=== PATIENT | female | born 1985 | race Hispanic/Latino ===

== ENCOUNTER 2019-01-15 20:07 | Inpatient (IN) | payer BC ==
[~2019-01-15] VITALS: Ht 149.9 cm; Wt 92.1 kg
[2019-01-15 20:41] LABS: APPEARANCE,URINE Clear (CLEAR); BILIRUBIN,URINE Negative (NEGATIVE); COLOR,URINE Yellow (YELLOW); GLUCOSE, URINE (UA) Negative (NEGATIVE); KETONES,URINE Negative (NEGATIVE); LEUKOCYTE ESTERASE ,URINE Negative (NEGATIVE); NITRATE,URINE Negative (NEGATIVE); OCCULT BLOOD,URINE Negative (NEGATIVE); PROTEIN,URINE Negative (NEGATIVE); UROBILINOGEN,URINE 0.2 mg/dL (0.2-1.0)
[2019-01-15 20:45] LABS: HCG,QUAL RESULT NEGATIVE (NEGATIVE)
[2019-01-15] MEDS ORDERED: ONDANSETRON HCL 4 MG/2 ML VIAL ONE (20:47)
[2019-01-15] MEDS ORDERED: MORPHINE SULFATE 4 MG/1ML SYG ONE (20:47)
[2019-01-15] MEDS ORDERED: ACETAMINOPHEN EXTRA STRENGTH 500 MG TABLET ONE (20:47)
[2019-01-15] MEDS ORDERED: SODIUM CHLORIDE 0.9% 1000ML 1,000 ML IV ONE ×2 (20:48→23:22)
[2019-01-15 20:59] LABS: BASOPHILS % (AUTO) 0.3 % (0.0-5.0); EOSINOPHILS % (AUTO) 0.3 % (0.0-8.0); HEMATOCRIT 29.2 % (36-48); LYMPHOCYTES % (AUTO) 13.6 % (21.0-51.0); MEAN CORPUSCULAR HEMOGLOBIN 21.3 pg (27.0-33.0); MEAN CORPUSCULAR HGB CONC 31.5 g/dL (32.0-36.0); MEAN CORPUSCULAR VOLUME 67.5 fL (79-99); MONOCYTES % (AUTO) 6.5 % (3.0-13.0); NEUTROPHILS % (AUTO) 79.3 % (40.0-77.0); PLATELET COUNT (AUTO) 422 K/uL (130-400); RED BLOOD CELL COUNT(AUTO) 4.32 MIL/uL (4.00-5.50); RED CELL DISTRIBUTION WIDTH 18.1 % (11.0-15.5); WHITE BLOOD COUNT (AUTO) 13.1 K/uL (4.8-10.8)
[2019-01-15 21:15] LABS: CREATININE 0.8 mg/dL (0.5-1.5); POTASSIUM 3.1 mmol/L (3.5-5.1)
[2019-01-15 21:19] LABS: ALBUMIN 3.4 g/dL (3.5-5.0); BILIRUBIN,TOTAL 0.3 mg/dL (0.2-1.0); TOTAL PROTEIN, SERUM 7.5 g/dL (6.0-8.3)
[2019-01-15] MEDS ORDERED: IOHEXOL-350 75 ML VIAL IV ONE (21:26)
[2019-01-15] MEDS ORDERED: POTASSIUM BICARB/CIT AC 25 MEQ TABLET.EFF ONE (21:26)
[2019-01-15] MEDS ORDERED: LEVOFLOXACIN 750 MG/D5W 150 ML 150 ML ONE (22:28)
[2019-01-15] MEDS ORDERED: METRONIDAZOLE 500MG/100ML BAG 100 ML ONE (22:28)
[2019-01-16] VITALS (7 sets, daily range): BP systolic 112–145; BP diastolic 60–81
[2019-01-16] MEDS ORDERED: SODIUM CHLORIDE 0.9% 1000ML 1,000 ML IV ONE (00:10)
--- NOTE | 2019-01-16 01:10 | NUR ---
ADMISSION PATIENT RECEIVED FROM ER, AWAKE AND ALERT. VOICES ALL NEEDS. RESP EVEN AND UNLABORED. NO SOB NOTED. VITALS STABLE. AFEBRILE. NO FURTHER ORDERS AT THIS TIME. HOSPITALIST PAGED. RETURN CALL PENDING. PATIENT ORIENTATED TO ROOM AND HOSPITAL. NO QUESTIONS OR CONCERNS VOICED AT THIS TIME. HEAD TO TOE ASSESSMENT DONE. NO SKIN BREAKDOWN NOTED. CALL LIGHT WITHIN REACH. WILL CONTINUE TO BE OBSERVED. Addendum: 01/17/19 at 0838 by EULALIO ELLER RN RN Amended: Links added.
[2019-01-16] MEDS ORDERED: MINO50CA6 PO (01:26)
[2019-01-16] MEDS: SODIUM CHLORIDE 0.9% 1000ML 1,000 ML IV SCH ×2 (04:05→14:54)
[2019-01-16] MEDS ORDERED: MORPHINE SULFATE 4 MG/1ML SYG IV PRN (04:15)
[2019-01-16] MEDS ORDERED: LEVOFLOXACIN 500 MG/D5W 100 ML 100 ML IV SCH ×2 (04:15→22:00)
[2019-01-16] MEDS ORDERED: ACETAMINOPHEN 325 MG TAB PO PRN ×2 (04:15)
[2019-01-16] MEDS ORDERED: MORPHINE SULFATE 2 MG/ML 1ML SYG IV PRN (04:15)
[2019-01-16] MEDS ORDERED: ONDANSETRON HCL 4 MG/2 ML VIAL IV PRN (04:15)
[2019-01-16] MEDS ORDERED: MORPHINE SULFATE 4 MG/1ML SYG ONE (04:42)
[2019-01-16 06:04] LABS: BASOPHILS % (AUTO) 0.3 % (0.0-5.0); EOSINOPHILS % (AUTO) 0.5 % (0.0-8.0); HEMATOCRIT 24.7 % (36-48); LYMPHOCYTES % (AUTO) 20.1 % (21.0-51.0); MEAN CORPUSCULAR HEMOGLOBIN 21.8 pg (27.0-33.0); MEAN CORPUSCULAR HGB CONC 32.4 g/dL (32.0-36.0); MEAN CORPUSCULAR VOLUME 67.3 fL (79-99); NEUTROPHILS % (AUTO) 72.1 % (40.0-77.0); PLATELET COUNT (AUTO) 370 K/uL (130-400); RED BLOOD CELL COUNT(AUTO) 3.67 MIL/uL (4.00-5.50); RED CELL DISTRIBUTION WIDTH 18.7 % (11.0-15.5); WHITE BLOOD COUNT (AUTO) 8.6 K/uL (4.8-10.8)
[2019-01-16 06:17] LABS: ALBUMIN 2.9 g/dL (3.5-5.0); BILIRUBIN,TOTAL 0.5 mg/dL (0.2-1.0); CREATININE 0.6 mg/dL (0.5-1.5); POTASSIUM 3.5 mmol/L (3.5-5.1); TOTAL PROTEIN, SERUM 6.4 g/dL (6.0-8.3)
[2019-01-16] MEDS: METRONIDAZOLE 500MG/100ML BAG 100 ML IV SCH ×3 (06:31→20:52)
[2019-01-16] MEDS ORDERED: HYDRALAZINE HCL 20 MG/ML VIAL IV PRN (07:15)
[2019-01-16] MEDS: FAMOTIDINE/PF 20 MG/2 ML VIAL IV SCH ×2 (09:30→20:52)
[2019-01-16] MEDS: PANTOPRAZOLE SODIUM 40 MG TABLET.DR PO SCH (09:31)
[2019-01-16] MEDS: ENOXAPARIN SODIUM 30 MG/0.3 ML SQ SCH (09:31)
[2019-01-16] MEDS ORDERED: POTASSIUM CHLORIDE 20MEQ/100ML 100 ML IV PRN (11:00)
[2019-01-16] MEDS ORDERED: LIDOCAINE HCL-MPF 1% 2ML VIAL IV PRN (11:00)
--- NOTE | 2019-01-16 13:37 | NUR ---
DC PLAN VISITED WITH PATIENT. PATIENT LIVES WITH SPOUSE. INDEPENDENT ABLE TO PERFORM ADL'S. PATIENT HAS NO SERVICES OR DME'S. FEELS SAFE TO RETURN HOME. Addendum: 01/16/19 at 1337 by SARA VEGAS RN CM Amended: Links added.
--- NOTE | 2019-01-16 19:00 | NUR ---
ROUNDS PATIENT AWAKE AND ALERT. VOICES ALL NEEDS. NO COMPLAINTS OF PAIN VOICED AT THIS TIME. RESP EVEN AND UNLABORED. NO SOB NOTED. ON ROOM AIR. UP AD PIOTR. TOLERATING IVF WELL. NS INFUSING AT 100ML/HR. NO ADVERSE REACTIONS NOTED FROM IV ABT. NO NAUSEA OR VOMITING NOTED. NO SIGNS OF DISTRESS NOTED. HOB ELEVATED. FAMILY AT BEDSIDE. CALL LIGHT WITHIN REACH, WILL CONTINUE TO BE OBSERVED. Addendum: 01/16/19 at [id number] by EULALIO ELLER RN RN Amended: Links added.
[2019-01-16] MEDS: NYSTATIN-TRIAMCINOLONE CREAM 15 GM TP SCH ×2 (20:52→21:00)
[2019-01-17] MEDS: SODIUM CHLORIDE 0.9% 1000ML 1,000 ML IV SCH ×2 (00:05→09:54)
[2019-01-17 03:49] VITALS: BP 126/71
[2019-01-17] MEDS: METRONIDAZOLE 500MG/100ML BAG 100 ML IV SCH ×2 (05:40→14:14)
[2019-01-17 07:50] VITALS: BP 128/77
[2019-01-17] MEDS: NYSTATIN-TRIAMCINOLONE CREAM 15 GM TP SCH (09:00)
[2019-01-17] MEDS: PANTOPRAZOLE SODIUM 40 MG TABLET.DR PO SCH (09:41)
[2019-01-17] MEDS: FAMOTIDINE/PF 20 MG/2 ML VIAL IV SCH (09:41)
[2019-01-17] MEDS: ENOXAPARIN SODIUM 30 MG/0.3 ML SQ SCH (09:41)
[2019-01-17 11:30] VITALS: BP 126/76
[2019-01-17 16:13] VITALS: BP 128/69
[2019-01-17] MEDS ORDERED: LEVO500T89 PO (17:42)
[2019-01-17] MEDS ORDERED: METR-172 PO (17:42)
== END 2019-01-17 19:50 | disposition home or self-care (01) | DRG 872 ==
LOC: EDH 20:07 → EDHIP 23:26 → 4AH 01-16 00:01
PROVIDERS: ADMIT Internal Medicine; ATTEND Internal Medicine
DX: A41.9 Sepsis, unspecified organism (principal); D61.818 Other pancytopenia; E44.1 Mild protein-calorie malnutrition; Z68.41 Body mass index [BMI] 40.0-44.9, adult; K57.32 Diverticulitis of large intestine without perforation or abscess without bleeding; N13.30 Unspecified hydronephrosis; E87.6 Hypokalemia; I10 Essential (primary) hypertension; I25.10 Atherosclerotic heart disease of native coronary artery without angina pectoris; N83.202 Unspecified ovarian cyst, left side
CPT/HCPCS: 36415; 74177; 80053; 81003; 81025; 83605; 83690; 83735; 85025; 87040; 87088; 99291; G0378; J1650; J1956; J2270; J2405; J3490; J7030; Q9967